=== PATIENT | female | born 1960 | race African-American/Black ===

== ENCOUNTER 2016-04-23 07:31 | Emergency (ER) | payer MEDICAID ==
[~2016-04-23] VITALS: Ht 167.6 cm; Wt 74.8 kg
[2016-04-23] MEDS ORDERED: FENTANYL1 EAC3 TDERMAL (08:00)
[2016-04-23] MEDS ORDERED: OXYCODONE HCL5 M2 ORAL (08:00)
[2016-04-23 08:01] VITALS: BP 163/92
--- NOTE | 2016-04-23 08:09 | Emergency Room Report ---
History of Present Illness General Chief Complaint: General Complaint Source: Patient Present Illness HPI Patient presents with complaints of neuropathy to the fingers and feet She reports that she had a stressful event yesterday which exacerbated her fibromyalgia and neuropathy Patient is here from out of town And states that she did not have her medications with her for pain She is [place] with today Denies any chest pain or shortness of breath denies any headache or visual changes The neuropathy is 10 out of 10 causing tingling and sharp pain Allergies: Coded Allergies: PENICILLINS (Verified Allergy, Severe, Rash, 04/23/16) Patient History Past Medical History: see triage record Pertinent Family History: none Last Menstrual Period: na Now: No Reviewed Nursing Documentation: PMH: Agreed, PSxH: Agreed Nursing Documentation-PMH Past Medical History: No History, Except For Hx Cardiac Problems: Yes - HIV +, afib Hx Hypertension: Yes Review of Systems All Other Systems: negative except mentioned in HPI Physical Exam Vital Signs Date Time Temp Pulse Resp B/P Pulse Ox O2 Delivery O2 Flow Rate FiO2 04/23/16 07:37 98.4 83 16 163/92 99 Room Air Sp02 EP Interpretation: reviewed, normal General Appearance: no apparent distress Head: normocephalic, atraumatic Eyes: bilateral eye EOMI, bilateral eye PERRL ENT: hearing grossly normal, normal pharynx, TMs + canals normal, uvula midline Neck: full range of motion, supple, no meningismus, no bony tend Respiratory: lungs clear, normal breath sounds, no rhonchi, no respiratory distress, no retraction, no accessory muscle use Cardiovascular #1: normal peripheral pulses, regular rate, rhythm, no edema, no gallop, no JVD, no murmur Gastrointestinal: normal bowel sounds, non tender, soft, no mass, no organomegaly, non-distended, no guarding, no hernia, no pulsatile mass, no rebound Genitourinary: no CVA tenderness Musculoskeletal: other - Patient has a difficult exam, upon arriving into the room the patient notified me not to touch her feet, she is able to move extremities without focal deficit Neurologic: oriented x3, responsive, behavioral health counselor III-XII nml as tested, sensory intact Psychiatric: mood/affect normal Skin: normal color, no rash, warm/dry, palpation normal Lymphatic: normal inspection, no adenopathy Medical Decision Making Diagnostic Impression: Primary Impression: Neuropathy ER Course Patient has significantly done better with acute intervention At this time has a benign neurological exam Hemodynamically stable And appropriate for close outpatient followup Last Vital Signs Date Time Temp Pulse Resp B/P Pulse Ox O2 Delivery O2 Flow Rate FiO2 04/23/16 08:01 98.4 16 163/92 99 Room Air 04/23/16 07:37 83 Status: improved Disposition: HOME, SELF-CARE Condition: Improved Referrals: NON PHYSICIAN (PCP) Additional Instructions: Patient is provided with the discharge instructions notified to follow up with primary doctor in the next 2-3 days otherwise return to the er with any worsening symptoms. SHIRAZ REY D.O. Apr 23, 2016 08:09
[2016-04-23] MEDS ORDERED: Norco 5mg/325mg tab ORAL ONE (08:15)
[2016-04-23 08:49] VITALS: BP 163/92
== END 2016-04-23 08:52 | disposition home or self-care (01) ==
LOC: EMR 08:01
DX: G62.9 Polyneuropathy, unspecified (principal); I10 Essential (primary) hypertension; Z88.0 Allergy status to penicillin
CPT/HCPCS: 99283